=== PATIENT | female | born 1985 | race Caucasian/White ===

== ENCOUNTER 2016-06-24 13:19 | Outpatient (CLI) | payer BC, MEDICARE | END 2016-06-24 18:20 | disposition home or self-care (01) | LOC: GENOP 13:19 | DX: Z34.83 Encounter for supervision of other normal pregnancy, third trimester (principal); Z3A.38 38 weeks gestation of pregnancy | CPT/HCPCS: 81001; G0463 ==

== ENCOUNTER 2016-06-29 05:44 | Inpatient (IN) | payer BC, MEDICARE ==
[~2016-06-29] VITALS: Ht 157.5 cm; Wt 86.6 kg
[2016-06-29 08:47] LABS: HEMOGLOBIN 11.1 gm/dl (12.3-15.3); RED BLOOD COUNT 3.94 M/UL (4.00-5.10); WHITE BLOOD COUNT 8.5 K/UL (4.5-11.0)
[2016-06-30 03:05] LABS: HEMOGLOBIN 9.9 gm/dl (12.3-15.3)
[2016-06-30] MEDS ORDERED: COLACE 100MG C100 MG PO (10:44)
== END 2016-06-30 16:48 | disposition home or self-care (01) | DRG 774 ==
LOC: GENOP 05:44 → OB 08:17
PROVIDERS: ADMIT Obstetrics & Gynecology
PROC: 10E0XZZ Delivery of Products of Conception, External Approach (ICD-10-PCS; principal; 2016-06-29)
PROC: 0HQ9XZZ Repair Perineum Skin, External Approach (ICD-10-PCS; 2016-06-29)
DX: O99.02 Anemia complicating childbirth (principal); O72.1 Other immediate postpartum hemorrhage; D64.9 Anemia, unspecified; O69.81X0 Labor and delivery complicated by cord around neck, without compression, not applicable or unspecified; O70.0 First degree perineal laceration during delivery; Z3A.39 39 weeks gestation of pregnancy; Z37.0 Single live birth; Z82.5 Family history of asthma and other chronic lower respiratory diseases; Z84.89 Family history of other specified conditions; Z82.49 Family history of ischemic heart disease and other diseases of the circulatory system; Z82.79 Family history of other congenital malformations, deformations and chromosomal abnormalities; Z28.21 Immunization not carried out because of patient refusal
CPT/HCPCS: 36415; 51702; 82800; 85014; 85018; 85025; J2405; J2590; J2795; J3010; J7120